=== PATIENT | female | born 2000 | race Caucasian/White ===

== ENCOUNTER 2024-01-16 10:20 | Emergency (ER) | payer SELFPAY ==
[2024-01-16] MEDS ORDERED: ONDANSETRON 4 MG/2 ML VIAL ONE (10:58)
[2024-01-16] MEDS ORDERED: FAMOTIDINE 20 MG/2 ML VIAL IV ONE (10:58)
[2024-01-16] MEDS ORDERED: NA CHLORIDE 0.9% 1,000 ML ONE (10:58)
[2024-01-16 11:04] LABS: Specific Gravity 1.017 (1.005-1.030)
[2024-01-16 11:06] LABS: Specific Gravity 1.017 (1.005-1.030); Sqamous Epithelial <5 /HPF (None Seen); Urine Bacteria None Seen /HPF (<20); Urine Bilirubin NEGATIVE (Negative); Urine Blood Negative (Negative); Urine Clarity Extremely Turbid (Clear); Urine Color Light-Yellow (Yellow); Urine Culture Reflex Order NOT NEEDED; Urine Glucose NEGATIVE (Negative); Urine Ketones NEGATIVE (Negative); Urine Microscopic Reflex YN ORDER UMIC; Urine Mucus Slight /HPF (None Seen); Urine Nitrite NEGATIVE (Negative); Urine Protein NEGATIVE (Negative); Urine RBC <5 /HPF (None Seen); Urine Urobilinogen Normal (Normal); Urine WBC <5 /HPF (<5); Urine pH 7.5 (5.0-7.0)
[2024-01-16 11:38] LABS: Absolute Eosinophils 0.1 K/uL (0-0.5); Absolute Lymphocytes (CBC) 1.9 K/uL (0.7-4.9); Absolute Monocytes 0.4 K/uL (0.1-1.3); Basophils % 0.5 % (0-1.3); Hematocrit 41.3 % (36.0-45.0); Hemoglobin 13.4 g/dL (12.0-15.0); Lymphocytes % 34.6 % (15.3-44.8); MCH 27.2 pg (27.0-35.0); MCHC 32.6 g/dL (32.0-36.0); MCV 83.5 fL (80-100); MPV 8.5 fL (7.6-11.3); Monocytes % 6.9 % (3.3-12.3); Platelets 287 thou/uL (152-406); RBC Red Blood Cell Count 4.95 M/uL (3.86-4.86); Red Cell Distribution Width 14.9 % (12.1-15.2)
[2024-01-16 11:58] LABS: Albumin 3.7 g/dL (3.4-5.0); Albumin/Globulin Ratio 0.8 (1.1-1.8); Bilirubin Total 0.4 mg/dL (0.2-1.0); Globulin 4.7 g/dL (2.3-3.5); Protein, Total 8.4 g/dL (6.4-8.2)
--- NOTE | 2024-01-16 14:03 | ER ---
Nurse's Notes [facility] Name: Camilla Christianson Age: 23 yrs Sex: Female : 2000 Arrival Date: 01/16/2024 Time: 10:20 Bed 7 Private MD: Diagnosis: Abdominal tenderness;Nausea;Dizziness and giddiness Presentation: 01/15 10:38 Chief complaint: Patient states: LOW RIGHT ABD PAIN RADIATES INTO BACK, N/V, DIZZINESS db X 2 DAYS WORSE TODAY. DENIES STATES HAS IUD. Coronavirus screen: Client denies travel out of the [place] in the last 14 days. At this time, the client does not indicate any symptoms associated with coronavirus-19. Ebola Screen: Patient negative for fever greater than or equal to 101.5 degrees Fahrenheit, and additional compatible Ebola Virus Disease symptoms Patient denies exposure to infectious person. Patient denies travel to an Ebola-affected area in the 21 days before illness onset. No symptoms or risks identified at this time. Initial Sepsis Screen: Does the patient meet any 2 criteria? No. Patient's initial sepsis screen is negative. Does the patient have a suspected source of infection? No. Patient's initial sepsis screen is negative. Risk Assessment: Do you want to hurt yourself or someone else? Patient reports no desire to harm self or others. Onset of symptoms was January 16, 2024. 10:38 Method Of Arrival: Ambulatory db 10:38 Acuity: GIULIANA 3 db Triage Assessment: 10:41 General: Appears in no apparent distress. comfortable, Behavior is calm, cooperative, db appropriate for age. Pain: Complains of pain in abdomen. Neuro: Level of Consciousness is awake, alert, obeys commands, Oriented to person, place, time, situation. Neuro: Reports dizziness. Respiratory: Airway is patent Respiratory effort is even, unlabored, Respiratory pattern is regular, symmetrical. GI: Abdomen is non-distended, Reports lower abdominal pain, nausea. Historical: - Allergies: 10:41 No Known Allergies; db - PMHx: 10:41 None; db - PSHx: 10:41 section; eye surgery; db - Immunization history:: Adult Immunizations unknown. - Infectious Disease History:: Denies. - Social history:: Smoking status: Reported history of juuling and/or vaping. Screenin:40 [facility] ED Fall Risk Assessment (Adult) History of falling in the last 3 months, rs5 including since admission No falls in past 3 months (0 pts) Confusion or Disorientation No (0 pts) Intoxicated or Sedated No (0 pts) Impaired Gait No (0 pts) Mobility Assist Device Used No (0 pt) Altered Elimination No (0 pt) Score/Fall Risk Level 0 - 2 = Low Risk Oriented to surroundings, Maintained a safe environment. 11:37 Abuse screen: Denies threats or abuse. Nutritional screening: No deficits noted. ap3 Tuberculosis screening: No symptoms or risk factors identified. Assessment: 11:35 General: Appears in no apparent distress. Behavior is calm, cooperative, appropriate ap3 for age. Pain: Complains of pain in abdomen. Neuro: Level of Consciousness is awake, alert, obeys commands, Oriented to person, place, time, situation, Appropriate for age Gait is steady, Speech is normal. Cardiovascular: Patient's skin is warm and dry. Respiratory: Airway is patent Respiratory effort is even, unlabored, Respiratory pattern is regular, symmetrical. GI: Abdomen is non-distended, Reports nausea. 12:14 Reassessment: Patient and/or family updated on plan of care and expected duration. Pain ap3 level reassessed. Patient is alert, oriented x 3, equal unlabored respirations, skin warm/dry/pink. 13:20 Reassessment: Patient and/or family updated on plan of care and expected duration. Pain rs5 level reassessed. Patient is alert, oriented x 3, equal unlabored respirations, skin warm/dry/pink. 14:17 Reassessment: Patient and/or family updated on plan of care and expected duration. Pain rs5 level reassessed. Patient is alert, oriented x 3, equal unlabored respirations, skin warm/dry/pink. Vital Signs: 10:38 BP 123 / 76; Pulse 60; Resp 16; Temp 98.4; Pulse Ox 100% ; Weight 105.69 kg; Height 5 db ft. 9 in. ; Pain 4/10; 12:12 BP 107 / 52; Pulse 61; Resp 17; Pulse Ox 98% on R/A; ap3 12:53 BP 101 / 62; Pulse 72; Pulse Ox 100% on R/A; ap3 14:15 BP 110 / 70; Pulse 74; Resp 17; Pulse Ox 99% on R/A; rs5 10:38 Body Mass Index 34.41 (105.69 kg, 175.26 cm) db 10:38 Pain Scale: Adult db ED Course: 10:23 Patient arrived in ED. mr 10:29 Kalpesh Joseph MD is Attending Physician. osbaldo 10:40 No provider procedures requiring assistance completed. rs5 10:41 Triage completed. db 10:41 Arm band placed on right wrist. Patient placed in waiting room. db 11:35 Raysa Carmichael, PAU is Primary Nurse. ap3 11:35 Initial lab(s) drawn, by ar, sent to lab. Inserted saline lock: 22 gauge in right ap3 antecubital area, using aseptic technique. Blood collected. Flushed with 10 mL NS. 11:37 Patient has correct armband on for positive identification. Call light in reach. Side ap3 rails up X 1. Provided Education on: call light education. Pulse ox on. NIBP on. 14:05 CT Stone Protocol In Process Unspecified. EDMS 14:25 IV discontinued, intact, bleeding controlled, No redness/swelling at site. Pressure rs5 dressing applied. Administered Medications: 11:36 Drug: Famotidine IVP 20 mg IVP once; dilute with 10 mL 0.9% NaCl; give over 2 minutes ap3 Route: IVP; Site: right antecubital; 12:36 Follow up: Response: No adverse reaction ap3 11:36 Drug: Ondansetron IVP 4 mg IVP once; over 2 minutes Route: IVP; Site: right antecubital;ap3 12:36 Follow up: Response: No adverse reaction; Nausea is decreased ap3 11:36 Drug: NS 0.9% IV 1000 ml IV at 1 bolus Per protocol; to be given as a bolus over 60 ap3 minutes Route: IV; Rate: 1 bolus; Site: right antecubital; 12:36 Follow up: IV Status: Completed infusion; IV Intake: 1000ml ap3 Medication: 10:41 VIS not applicable for this client. rs5 Intake: 12:36 IV: 1000ml; Total: 1000ml. ap3 Outcome: 14:02 Discharge ordered by . osbaldo 14:25 Discharged to home ambulatory, rs5 14:25 Condition: stable rs5 14:25 Discharge instructions given to patient, family, Instructed on discharge instructions, follow up and referral plans. Demonstrated understanding of instructions, follow-up care, 14:28 Patient left the ED. rs5 Signatures: Dispatcher [employer] EDKalpesh Heck MD MD cha Rivera Kristy, [facility] Reg mr AmolRaysa, RN RN ap3 Nilsa Bradley RN RN db Moses Ware RN RN rs5 Corrections: (The following items were deleted from the chart) 10:42 10:38 Chief complaint: Patient states: ABD PAIN N/V, DIZZINESS X 2 DAYS WORSE TODAY. db DENIES STATES HAS IUD db
--- NOTE | 2024-01-16 14:03 | EDPHYS ---
Physician Documentation [facility] Name: Camilla Christianson Age: 23 yrs Sex: Female : 2000 Arrival Date: 01/16/2024 Time: 10:20 Bed 7 Private MD: ED Physician Kalpesh Joseph HPI: 01/15 13:28 This 23 yrs old Female presents to ER via Ambulatory with complaints of osbaldo Abdominal Pain, Nausea, Dizziness. 13:28 The patient presents to the emergency department with nausea. Onset: The osbaldo symptoms/episode began/occurred 2 day(s) ago. Possible causes: unknown. The symptoms are aggravated by nothing. The symptoms are alleviated by nothing. Associated signs and symptoms: The patient has no apparent associated signs or symptoms. Severity of symptoms: At their worst the symptoms were moderate in the emergency department the symptoms are unchanged. The patient has experienced similar episodes in the past, a few times. Historical: - Allergies: 10:41 No Known Allergies; db - PMHx: 10:41 None; db - PSHx: 10:41 section; eye surgery; db - Immunization history:: Adult Immunizations unknown. - Infectious Disease History:: Denies. - Social history:: Smoking status: Reported history of juuling and/or vaping. ROS: 13:29 Constitutional: Negative for fever, chills, and weight loss, Eyes: Negative for injury, osbaldo pain, redness, and discharge, ENT: Negative for injury, pain, and discharge, Neck: Negative for injury, pain, and swelling, Cardiovascular: Negative for chest pain, palpitations, and edema, Respiratory: Negative for shortness of breath, cough, wheezing, and pleuritic chest pain, Back: Negative for injury and pain, : Negative for injury, bleeding, discharge, and swelling, MS/Extremity: Negative for injury and deformity, Skin: Negative for injury, rash, and discoloration, Neuro: Negative for headache, weakness, numbness, tingling, and seizure, Psych: Negative for depression, anxiety, suicide ideation, homicidal ideation, and hallucinations, Allergy/Immunology: Negative for hives, rash, and allergies, Endocrine: Negative for neck swelling, polydipsia, polyuria, polyphagia, and marked weight changes, Hematologic/Lymphatic: Negative for swollen nodes, abnormal bleeding, and unusual bruising, 13:29 Abdomen/GI: Positive for abdominal pain, nausea, vomiting, abdominal cramps, of the posterior aspect of right lateral abdomen, anterior aspect of right lateral abdomen and right lower quadrant, Exam: 13:29 Constitutional: This is a well developed, well nourished patient who is awake, alert, osbaldo and in no acute distress. Head/Face: Normocephalic, atraumatic. Eyes: Pupils equal round and reactive to light, extra-ocular motions intact. Lids and lashes normal. Conjunctiva and sclera are non-icteric and not injected. Cornea within normal limits. Periorbital areas with no swelling, redness, or edema. ENT: Nares patent. No nasal discharge, no septal abnormalities noted. Tympanic membranes are normal and external auditory canals are clear. Oropharynx with no redness, swelling, or masses, exudates, or evidence of obstruction, uvula midline. Mucous membranes moist. Neck: Trachea midline, no thyromegaly or masses palpated, and no cervical lymphadenopathy. Supple, full range of motion without nuchal rigidity, or vertebral point tenderness. No Meningismus. Chest/axilla: Normal chest wall appearance and motion. Nontender with no deformity. No lesions are appreciated. Cardiovascular: Regular rate and rhythm with a normal S1 and S2. No gallops, murmurs, or rubs. Normal PMI, no JVD. No pulse deficits. Respiratory: Lungs have equal breath sounds bilaterally, clear to auscultation and percussion. No rales, rhonchi or wheezes noted. No increased work of breathing, no retractions or nasal flaring. Abdomen/GI: Soft, non-tender, with normal bowel sounds. No distension or tympany. No guarding or rebound. No evidence of tenderness throughout. Back: No spinal tenderness. No costovertebral tenderness. Full range of motion. Skin: Warm, dry with normal turgor. Normal color with no rashes, no lesions, and no evidence of cellulitis. MS/ Extremity: Pulses equal, no cyanosis. Neurovascular intact. Full, normal range of motion. Neuro: Awake and alert, GCS 15, oriented to person, place, time, and situation. Cranial nerves II-XII grossly intact. Motor strength 5/5 in all extremities. Sensory grossly intact. Cerebellar exam normal. Normal gait. Psych: Awake, alert, with orientation to person, place and time. Behavior, mood, and affect are within normal limits. Vital Signs: 10:38 BP 123 / 76; Pulse 60; Resp 16; Temp 98.4; Pulse Ox 100% ; Weight 105.69 kg; Height 5 db ft. 9 in. ; Pain 4/10; 12:12 BP 107 / 52; Pulse 61; Resp 17; Pulse Ox 98% on R/A; ap3 12:53 BP 101 / 62; Pulse 72; Pulse Ox 100% on R/A; ap3 14:15 BP 110 / 70; Pulse 74; Resp 17; Pulse Ox 99% on R/A; rs5 10:38 Body Mass Index 34.41 (105.69 kg, 175.26 cm) db 10:38 Pain Scale: Adult db MDM: 10:29 Medical Screening Exam initiated osbaldo 13:32 Differential diagnosis: Nonspecific abd pain, cholecystitis, pancreatitis, osbaldo appendicitis, viral gastroenteritis, gastroenteritis. Data reviewed: vital signs, nurses notes, lab test result(s), radiologic studies, CT scan. Consideration of Admission/Observation Escalation of care including admission/observation considered. I considered the following discharge prescriptions or medication management in the emergency department Medications were administered in the Emergency Department. See MAR. Test considered but Not performed: Ultrasound NO ABD USG. Care significantly affected by the following chronic conditions: Obesity. 01/15 10:29 Order name: CBC with Diff; Complete Time: 13:15 [facility] 01/15 10: Order name: CMP; Complete Time: 13:15 [facility] 01/15 10:29 Order name: Lipase; Complete Time: 13:15 [facility] 01/15 10:29 Order name: Test, Urine; Complete Time: 13:15 [facility] 01/15 10:29 Order name: Urinalysis w/ reflexes; Complete Time: 13:15 [facility] 01/15 13:34 Order name: CT Stone Protocol [facility] 01/15 10: Order name: IV Saline Lock; Complete Time: 11:36 [facility] 01/15 10: Order name: Labs collected and sent; Complete Time: 11:36 [facility] Administered Medications: 11:36 Drug: Famotidine IVP 20 mg IVP once; dilute with 10 mL 0.9% NaCl; give over 2 minutes ap3 Route: IVP; Site: right antecubital; 12:36 Follow up: Response: No adverse reaction ap3 11:36 Drug: Ondansetron IVP 4 mg IVP once; over 2 minutes Route: IVP; Site: right antecubital;ap3 12:36 Follow up: Response: No adverse reaction; Nausea is decreased ap3 11:36 Drug: NS 0.9% IV 1000 ml IV at 1 bolus Per protocol; to be given as a bolus over 60 ap3 minutes Route: IV; Rate: 1 bolus; Site: right antecubital; 12:36 Follow up: IV Status: Completed infusion; IV Intake: 1000ml ap3 Disposition Summary: 01/16/24 14:02 Discharge Ordered Notes: Location: Home osbaldo Problem: new osbaldo Symptoms: have improved osbaldo Condition: Stable osbaldo Diagnosis - Abdominal tenderness obsaldo - Nausea osbaldo - Dizziness and giddiness osbaldo Followup: osbaldo - With: Private Physician - When: 2 - 3 days - Reason: Recheck today's complaints, Continuance of care, Re-evaluation by your physician Discharge Instructions: - Discharge Summary Sheet osbaldo - Abdominal Pain, Adult osbaldo - Dizziness osbaldo - Nausea and Vomiting, Adult osbaldo - Abdominal Pain, Adult, [id number] osbaldo Forms: - Medication Reconciliation Form osbaldo - Antibiotic Education osbaldo - Prescription Opioid Use osbaldo - Patient Portal Instructions osbaldo - Leadership Thank You Letter osbaldo - Work release form rs5 - SBAR form rs5 Prescriptions: - Zofran 4 mg Oral Tablet - take 1 tablet ORAL route every 12 hours As needed; 20 tablet; Refills: 0, osbaldo Product Selection Permitted - dicyclomine 20 mg Oral tablet - take 1 tablet ORAL route 4 times per day; 28 tablet; Refills: 0, Product osbaldo Selection Permitted Signatures: Dispatcher [employer] EDMS Kalpesh Joseph MD MD cha Prokisch, Amanda RN RN ap3 Nilsa Bradley RN RN db Corrections: (The following items were deleted from the chart) 10:29 10:29 CBC+H.LAB.BRZ ordered. EDMS EDMS 10:29 10:29 COMPREHENSIVE METABOLIC PANEL+C.LAB.BRZ ordered. EDMS EDMS 10:29 10:29 LIPASE+C.LAB.BRZ ordered. EDMS EDMS 10:29 10:29 Test, Urine+UC.LAB.BRZ ordered. EDMS EDMS 10:29 10:29 Urinalysis+U.LAB.BRZ ordered. EDMS EDMS
--- NOTE | 2024-01-16 14:34 | RAD REPORT ---
EXAMINATION: CT Stone Protocol CLINICAL INDICATION: Female, 23 years old. ABD PAIN TECHNIQUE: CT abdomen and pelvis was performed, without IV contrast, as per department protocol. Axia l, sagittal and coronal reconstructions were obtained. One or more of the following dose reduction techniques were used: Automated exposure control, adjustment of the mA and kV according to the patien t size, and iterative reconstruction. Unless otherwise specified, incidental findings do not require dedicated imaging follow-up. COMPARISON: 12/19/2023 FINDINGS: The lack of intravenous contrast limits the sensitivity of this exam for evaluation of solid visceral organs, vascular structures, and retroperitoneum. LOWER CHEST: The visualized lung bases are clear. LIVER: Normal in size and contour. No focal lesion. BILIARY SYSTEM: No suspicious abnormalities. SPLEEN: Normal size. No focal lesion. PANCREAS: No mass, ductal dilation, or liv-pancreatic fluid. ADRENALS: Normal; no mass. KIDNEYS AND URETERS: Normal size and contour. No hydronephrosis. URINARY BLADDER: Normal contour. GASTROINTESTINAL TRACT: No evidence of bowel obstruction, significant free fluid, free air or abscess . APPENDIX: Normal appendix. LYMPH NODES: No lymphadenopathy. MUSCULOSKELETAL: No acute or suspicious osseous abnormality. ADDITIONAL FINDINGS: Uterus is retroverted. IUD in place. Ovoid cyst measuring 1.9 cm in greatest dim ension along the right aspect of the perineum, somewhat decreased in size since the prior CT. IMPRESSION: No acute or concerning abnormalities in the abdomen or pelvis, with evaluation limited by lack of IV contrast.
[2024-01-16 18:00] VITALS: TEMP 98.4
[2024-01-16 18:02] VITALS: BP 101/62; O2SAT 100
== END 2024-01-16 14:28 | disposition home or self-care (01) ==
LOC: ER 10:20
DX: R10.813 Right lower quadrant abdominal tenderness (principal); R11.0 Nausea; R42 Dizziness and giddiness
CPT/HCPCS: 36415; 74176; 76377; 80053; 81001; 81025; 83690; 85025; 96361; 96374; 96375; 99284; J2405; J7030

== ENCOUNTER 2024-05-11 14:31 | Emergency (ER) | payer OTHER, SELFPAY ==
--- NOTE | 2024-05-11 15:37 | RAD REPORT ---
EXAMINATION: US FIRST TRIMESTER TRANSVAGINAL WITH DOPPLER CLINICAL INDICATION: with pelvic pain TECHNIQUE: Real-time obstetrical ultrasonography of the maternal pelvis and first trimester was performed transvaginally. Color and spectral Doppler evaluation of the ovaries was performed. COMPARISON: No prior exam. FINDINGS: The uterus measures 7 x 4 x 4 cm. The uterus is retroflexed. A endometrial stripe measures 4 mm. A gestational sac is not seen. Right ovary normal in size and echotexture Left ovary normal in size and echotexture Right and left adnexa unremarkable No significant free fluid IMPRESSION: Non visualization of a gestational sac within the endometrium. This could be a viable intrauterine pr egnancy in which the gestational sac not seen secondary to the early gestation. Other considerations include an and even ectopic . This should be correlated clinically and with serial beta-hCG levels. Follow-up endovaginal sonogram in one week recommended for reevaluation
[2024-05-11 15:43] LABS: Specific Gravity 1.018 (1.005-1.030); Sqamous Epithelial <5 /HPF (None Seen); Urine Bacteria <20 /HPF (<20); Urine Bilirubin NEGATIVE (Negative); Urine Blood 3+ (OVER) (Negative); Urine Clarity Clear (Clear); Urine Color Light-Yellow (Yellow); Urine Crystals Unidentified Few /HPF (None Seen); Urine Culture Reflex Order NOT NEEDED; Urine Glucose NEGATIVE (Negative); Urine Ketones NEGATIVE (Negative); Urine Microscopic Reflex YN ORDER UMIC; Urine Nitrite NEGATIVE (Negative); Urine Protein NEGATIVE (Negative); Urine RBC >50 /HPF (None Seen); Urine Urobilinogen Normal (Normal); Urine WBC <5 /HPF (<5); Urine Yeast (Budding) Trace /HPF (None Seen)
--- NOTE | 2024-05-11 16:02 | EDPHYS ---
Physician Documentation [facility] Name: Camilla Christianson Age: 23 yrs Sex: Female : 2000 Arrival Date: 05/11/2024 Time: 14:31 Bed DX2 Private MD: ED Physician Wendy Mane HPI: 05/11 14:53 This 23 yrs old Female presents to ER via Unassigned with complaints of Vaginal kb Bleeding, + Preg <12wks. 14:53 Patient is a 23-year-old female who presents for vaginal bleeding that is light that kb started today. Reports mild suprapubic pain. States she took a test 1 week ago and it was positive. LMP 03/06/2024. A2.. COW TESTER: 15:02 LMP 03/06/2024, unknown ko1 Historical: - Allergies: 15:02 No Known Allergies; ko1 - Home Meds: 15:02 None [Active]; ko1 - PMHx: 15:02 None; ko1 - PSHx: 15:02 section; eye surgery; ko1 - Immunization history:: Adult Immunizations up to date. - Infectious Disease History:: Denies. - Social history:: Smoking status: Patient/guardian denies using tobacco, but has a distant history of tobacco abuse. ROS: 14:53 Constitutional: As per HPI kb Exam: 14:53 Constitutional: This is a well developed, well nourished patient who is awake, alert, kb and in no acute distress. Head/Face: Normocephalic, atraumatic. ENT: Moist Mucous membranes Cardiovascular: Regular rate Respiratory: Respirations even and unlabored. No increased work of breathing. Talking in full sentences Abdomen/GI: Soft, non-tender. No distention Skin: Warm, dry with normal turgor. Normal color. MS/ Extremity: Pulses equal, no cyanosis. Neurovascular intact. Full, normal range of motion. Neuro: Awake and alert, GCS 15, oriented to person, place, time, and situation. Vital Signs: 14:59 BP 123 / 82; Pulse 77; Resp 16; Temp 98; Pulse Ox 100% ; ko1 MDM: 14:34 Medical Screening Exam initiated kb 14:56 Data reviewed: vital signs, nurses notes. kb 14:57 Differential diagnosis: threatened Ab, complete Ab, ectopic . kb 16:00 Counseling: I had a detailed discussion with the patient and/or guardian regarding the kb historical points, exam findings, and any diagnostic results supporting the discharge/admit diagnosis, lab results, radiology results, the need for outpatient follow up, an OB/Gyne specialist, to return to the emergency department if symptoms worsen or persist or if there are any questions or concerns that arise at home. 05/11 14:45 Order name: Test, Urine; Complete Time: 15:46 kb 05/11 14:45 Order name: Urinalysis w/ reflexes; Complete Time: 15:46 kb 05/11 14:45 Order name: US Transvaginal Ob; Complete Time: 15:38 kb Administered Medications: No medications were administered Disposition: 19:49 Co-signature as Attending Physician, Wendy Mane MD I agree with the assessment and gb1 plan of care. I reviewed the patient's care provided by the Advanced Practice Provider and agree with the diagnosis and treatment plan. Chart complete. Disposition Summary: 05/11/24 16:01 Discharge Ordered Notes: Location: Home kb Condition: Stable kb Diagnosis - Abnormal uterine and vaginal bleeding, unspecified kb Followup: kb - With: Emergency Department - When: As needed - Reason: Worsening of condition Followup: kb - With: Private Physician - When: 2 - 3 days - Reason: Recheck today's complaints, Continuance of care, Re-evaluation by your physician Discharge Instructions: - Discharge Summary Sheet kb - Abnormal Uterine Bleeding, Oeax-mn-Ohel kb Forms: - Medication Reconciliation Form kb - Antibiotic Education kb - Prescription Opioid Use kb - Patient Portal Instructions kb - Leadership Thank You Letter kb Signatures: Dispatcher [employer] EDIN Fatimah Ambriz, EVENT AV OPERATOR-C EVENT AV OPERATOR-Ckb Khadijah Lorenzo, RN RN ko1 Wendy Mane MD MD gb1 Corrections: (The following items were deleted from the chart) 14:45 14:45 ABO/RH TYPING+BB.LAB.BRZ ordered. EDIN EDMS 14:45 14:45 BASIC METABOLIC PANEL+C.LAB.BRZ ordered. EDIN EDMS 14:45 14:45 CBC+H.LAB.BRZ ordered. EDIN EDMS 14:45 14:45 Test, Urine+UC.LAB.BRZ ordered. EDMS EDMS 14:45 14:45 QUANTITATIVE HCG+C.LAB.BRZ ordered. EDMS EDMS 14:45 14:45 Urinalysis+U.LAB.BRZ ordered. EDMS EDMS 14:46 14:45 Transvaginal Ob+US.RAD.BRZ ordered. EDMS EDMS 16: 14:45 IV Saline Lock ordered. kb 16:03 14:45 Labs collected and sent ordered. kb 16:03 14:45 NPO ordered. [facility]
--- NOTE | 2024-05-11 16:02 | ER ---
Nurse's Notes [facility] Name: Camilla Christianson Age: 23 yrs Sex: Female : 2000 Arrival Date: 05/11/2024 Time: 14:31 Bed DX2 Private MD: Diagnosis: Abnormal uterine and vaginal bleeding, unspecified Presentation: 05/11 14:59 Chief complaint: Patient states: positive preg test one week ago, bleeding today mild ko1 pain. Coronavirus screen: At this time, the client does not indicate any symptoms associated with coronavirus-19. Ebola Screen: No symptoms or risks identified at this time. Initial Sepsis Screen: Does the patient meet any 2 criteria? No. Patient's initial sepsis screen is negative. Does the patient have a suspected source of infection? No. Patient's initial sepsis screen is negative. Risk Assessment: Do you want to hurt yourself or someone else? Patient reports no desire to harm self or others. Onset of symptoms is unknown. 14:59 Method Of Arrival: Ambulatory ko1 14:59 Acuity: GIULIANA 4 ko1 Triage Assessment: 15:02 General: Appears in no apparent distress. Behavior is calm, cooperative, appropriate ko1 for age. Pain: Denies pain. : Reports vaginal bleeding that is bright red. 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 - Infectious Disease History:: Denies. - Social history:: Smoking status: Patient/guardian denies using tobacco, but has a distant history of tobacco abuse. Screenin:12 Abuse screen: Denies threats or abuse. Denies injuries from another. Nutritional ss screening: No deficits noted. Tuberculosis screening: Never had TB. Assessment: 16:12 General: Appears in no apparent distress. comfortable, Behavior is calm, cooperative. ss Neuro: Level of Consciousness is awake, alert, obeys commands. Respiratory: Airway is patent Respiratory effort is even, unlabored, Respiratory pattern is regular, symmetrical. EENT: Nares are clear. Vital Signs: 14:59 BP 123 / 82; Pulse 77; Resp 16; Temp 98; Pulse Ox 100% ; ko1 ED Course: 14:33 Patient arrived in ED. mr 14:34 Fatimah Ambriz F[facility]-C [facility]. kb 14:34 Wendy Mane MD is Attending Physician. kb 15:02 Triage completed. ko1 15:02 Arm band placed on right wrist. Patient placed in waiting room, Patient notified of ko1 wait time. 15:29 US Transvaginal Ob In Process Unspecified. EDMS 16:12 Patient has correct armband on for positive identification. ss 16:12 No provider procedures requiring assistance completed. Patient did not have IV access ss during this emergency room visit. Administered Medications: No medications were administered Medication: 16:12 VIS not applicable for this client. ss Outcome: 16:01 Discharge ordered by . kb 16:12 Discharged to home ambulatory, ss 16:12 Condition: good 16:12 Discharge instructions given to patient, significant other, Instructed on discharge instructions, follow up and referral plans. Demonstrated understanding of instructions, follow-up care, 16:13 Patient left the ED. ss Signatures: Dispatcher [employer] EDNJ Fatimah Ambriz FNP-C FNP-Kristy Miranda, Reg Reg mr Mehnaz Godwin, RN RN ss Khadijah Lorenzo, PAU RN ko1
[2024-05-11 16:32] VITALS: BP 123/82; TEMP 98; O2SAT 100
== END 2024-05-11 16:13 | disposition home or self-care (01) ==
LOC: ER 14:31
DX: N93.9 Abnormal uterine and vaginal bleeding, unspecified (principal)
CPT/HCPCS: 76817; 81001; 81025; 99282

== ENCOUNTER 2024-08-11 12:15 | Emergency (ER) | payer SELFPAY ==
[2024-08-11] MEDS ORDERED: MORPHINE 4 MG/ML SYR ONE (12:37)
[2024-08-11] MEDS ORDERED: ONDANSETRON 4 MG/2 ML VIAL ONE (12:38)
[2024-08-11 12:42] LABS: Absolute Eosinophils 0.1 K/uL (0-0.5); Absolute Monocytes 0.4 K/uL (0.1-1.3); Absolute Neutrophil 3.9 K/uL (1.8-8.0); Basophils % 0.6 % (0-1.3); Eosinophils % 2.3 % (0-4.4); Hematocrit 39.6 % (36.0-45.0); Hemoglobin 13.5 g/dL (12.0-15.0); Lymphocytes % 30.6 % (15.3-44.8); MCH 27.6 pg (27.0-35.0); MCV 81.3 fL (80-100); MPV 8.5 fL (7.6-11.3); Monocytes % 6.6 % (3.3-12.3); Neutrophils % 59.9 % (41.7-73.7); Nucleated Red Blood Cells % 0.1 % (0-0); Platelets 306 thou/uL (152-406); RBC Red Blood Cell Count 4.87 M/uL (3.86-4.86)
[2024-08-11 13:03] LABS: Albumin 3.6 g/dL (3.4-5.0); Albumin/Globulin Ratio 0.7 (1.1-1.8); Bilirubin Total 0.2 mg/dL (0.2-1.0); Globulin 4.9 g/dL (2.3-3.5); Protein, Total 8.5 g/dL (6.4-8.2)
[2024-08-11 13:25] LABS: Specific Gravity 1.021 (1.005-1.030)
--- NOTE | 2024-08-11 13:55 | RAD REPORT ---
EXAMINATION: Abdomen Pelvis W Contrast CLINICAL INDICATION: Female, 23 years old.ABD PAIN TECHNIQUE: CT abdomen and pelvis was performed, after the administration of IV contrast, [facility]. Axial, sagittal and coronal reconstructions were obtained. One or more of the following dose reduction techniques were used: Automated exposure control, adjustment of the mA and/o r kV according to patient size, and/or iterative reconstruction. Unless otherwise specified, incidental findings do not require dedicated imaging follow-up. [id number]. COMPARISON: 12/19/2023 FINDINGS: LOWER CHEST: No acute process identified.No significant pericardial effusion. UPPER GI: No significant abnormality. LIVER: No significant focal abnormality. GALLBLADDER/BILE DUCTS: No biliary ductal dilatation.? PANCREAS: No mass, ductal dilation, or liv-pancreatic fluid. SPLEEN: Unremarkable. ADRENALS: No adrenal masses. KIDNEYS AND URETERS: No hydronephrosis.No suspicious renal mass. ABDOMINAL AORTA AND OTHER VESSELS: Normal caliber aorta and IVC. PERITONEUM: No abnormal free fluid. No free air. LYMPH NODES: No pathologic lymphadenopathy. ABDOMINAL WALL: Small fat containing umbilical hernia with some mild stranding though this is unchang ed and probably of little significance... SMALL BOWEL/COLON: Small bowel has normal course and caliber. No colonic wall thickening or pericolon ic inflammatory changes.Normal appendix. URINARY BLADDER: Underdistended but grossly unremarkable. REPRODUCTIVE ORGANS: Bartholin's cyst at the right labia. MUSCULOSKELETAL: No acute or suspicious osseous abnormality. ADDITIONAL FINDINGS: None. IMPRESSION: No acute findings within the abdomen or pelvis. Normal appendix
--- NOTE | 2024-08-11 16:11 | RAD REPORT ---
EXAMINATION: US Transvaginal Study Probe CLINICAL INDICATION: Female 23 years old.[facility] . RLQ abdominal pain Bed Name: 20 TECHNIQUE: Real-time ultrasonography of the pelvis was performed transvaginally. Color and spectral D oppler evaluation of the ovaries was performed. COMPARISON: No prior exam. FINDINGS: UTERUS AND CERVIX: The uterus measures 6.9 cm in length. The uterus is normal, with a single small na bothian cyst near the cervix. No masses seen The endometrium is normal, 0.8 cm in thickness. RIGHT OVARY: Normal apart from dominant right ovarian follicle measuring 1.5 cm. The right ovary jennifer ures 3.7x2.4x2.4 cm. Normal color and spectral Doppler evaluation of the right ovary.. LEFT OVARY: Normal The left ovary measures 3.5x2.3x1.9 cm. Normal color and spectral Doppler evaluation of the left ovary.. FREE FLUID: No free fluid. IMPRESSION: No suspicious abnormalities of the uterus or adnexa.
--- NOTE | 2024-08-11 16:18 | EDPHYS ---
Physician Documentation [facility] Name: Camilla Christianson Age: 23 yrs Sex: Female : 2000 Arrival Date: 08/11/2024 Time: 12:15 Bed 20 Private MD: ED Physician Jamaal Martínez HPI: 08/11 16:12 This 23 yrs old Female presents to ER via Ambulatory with complaints of Abdominal Pain. ms3 16:12 23-year-old female with no past medical history presents to the emergency department ms3 for abdominal pain began 2 days prior to arrival. Patient states the pain is sharp and located in the right side. Patient states the bumps and straightening on her abdomen makes the pain worse. Patient denies any alleviating or inciting factors.. 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 - Infectious Disease History:: Denies. - Social history:: Smoking status: Patient denies any tobacco usage or history of. ROS: 16:12 Constitutional: Negative for fever, and chills. Cardiovascular: Negative for chest ms3 pain, and palpitations. Respiratory: Negative for shortness of breath, cough, wheezing, and pleuritic chest pain, 16:12 MS/Extremity: Negative for injury and deformity, Skin: Negative for injury, rash, and discoloration, 16:12 Abdomen/GI: Positive for abdominal pain, Exam: 16:12 Constitutional: This is a well developed, well nourished patient who is awake, alert, ms3 and in no acute distress. Cardiovascular: Regular rate and rhythm with a normal S1 and S2. No gallops, murmurs, or rubs. Normal PMI, no JVD. No pulse deficits. Respiratory: Lungs have equal breath sounds bilaterally, clear to auscultation and percussion. No rales, rhonchi or wheezes noted. No increased work of breathing, no retractions or nasal flaring. Skin: Warm, dry with normal turgor. Normal color with no rashes, no lesions, and no evidence of cellulitis. MS/ Extremity: Pulses equal, no cyanosis. Neurovascular intact. Full, normal range of motion. 16:12 Abdomen/GI: Inspection: abdomen appears normal, Bowel sounds: normal, Palpation: moderate abdominal tenderness, in the right lower quadrant, Vital Signs: 12:27 BP 138 / 78; Pulse 63; Resp 18; Temp 98; Pulse Ox 97% on R/A; Weight 106.59 kg; Height mb9 5 ft. 9 in. ; Pain 8/10; 14:15 BP 112 / 63; Pulse 84; Resp 18; Pulse Ox 100% on R/A; mb9 12:27 Body Mass Index 34.70 (106.59 kg, 175.26 cm) mb9 12:27 Pain Scale: Adult mb9 MDM: 13:10 Medical Screening Exam initiated ms3 16:12 Differential diagnosis: appendicitis, non-specific abd pain, Ovarian Torsion. ms3 16:21 Data reviewed: vital signs, nurses notes, lab test result(s), radiologic studies, and ms3 as a result, I will discharge patient. I considered the following discharge prescriptions or medication management in the emergency department Medications were administered in the Emergency Department. See MAR. Counseling: I had a detailed discussion with the patient and/or guardian regarding the historical points, exam findings, and any diagnostic results supporting the discharge/admit diagnosis, lab results, radiology results, the need for outpatient follow up, to return to the emergency department if symptoms worsen or persist or if there are any questions or concerns that arise at home. Special discussion: I discussed with the patient/guardian in detail that at this point there is no indication for admission to the hospital. It is understood, however, that if the symptoms persist or worsen the patient needs to return immediately for re-evaluation. ED course: Discussed labs and imaging with patient. No signs of ovarian torsion or appendicitis through imaging. White blood count normal. Patient to follow-up with primary care physician 2 to 3 days. Patient understands and agrees with plan. All questions were answered. Return precautions discussed include worsening symptoms, or any other concerns. 08/11 12:21 Order name: CBC with Diff; Complete Time: 12:53 ms3 08/11 12:21 Order name: CMP; Complete Time: 14:02 ms3 08/11 12:21 Order name: Lipase; Complete Time: 14:02 ms3 08/11 12:21 Order name: Test, Urine; Complete Time: 14:02 ms3 08/11 12:38 Order name: CT Abd/Pelvis - IV Contrast Only; Complete Time: 14:02 ms3 08/11 14:47 Order name: Transvaginal Study Probe; Complete Time: 16:17 EDMS 08/11 12:21 Order name: IV Saline Lock; Complete Time: 12:33 ms3 08/11 12:21 Order name: Labs collected and sent; Complete Time: 12:33 ms3 Administered Medications: 12:50 Drug: Ondansetron IVP 4 mg IVP once; over 2 minutes Route: IVP; Site: right antecubital;mb9 14:27 Follow up: Response: No adverse reaction mb9 12:52 Drug: morphine IVP or IV 4 mg IVP once over 4 mins Route: IVP; Infused Over: 4 mins; mb9 Site: right antecubital; 14:27 Follow up: Response: No adverse reaction mb9 Disposition Summary: 08/11/24 16:18 Discharge Ordered Notes: Location: Home ms3 Condition: Stable ms3 Diagnosis - Lower abdominal pain, unspecified ms3 Followup: ms3 - With: Arsen Davis DO - When: 2 - 3 days - Reason: Recheck today's complaints Discharge Instructions: - Discharge Summary Sheet ms3 - Abdominal Pain, Adult ms3 Forms: - Work release form ss - Medication Reconciliation Form ms3 - Antibiotic Education ms3 - Prescription Opioid Use ms3 - Patient Portal Instructions ms3 - Leadership Thank You Letter ms3 Signatures: Dispatcher [employer] EDMS Jamaal Martínez DO DO ms3 Kristy Jane RN RN mb9 Corrections: (The following items were deleted from the chart) 12:21 12:21 CBC+H.LAB.BRZ ordered. EDMS EDMS 12:21 12:21 COMPREHENSIVE METABOLIC PANEL+C.LAB.BRZ ordered. EDMS EDMS 12:21 12:21 LIPASE+C.LAB.BRZ ordered. EDMS EDMS 12:21 12:21 Test, Urine+UC.LAB.BRZ ordered. EDMS EDMS 14:09 14:09 Pelvis Complete+US.RAD.BRZ ordered. EDMS EDMS
--- NOTE | 2024-08-11 16:18 | ER ---
Nurse's Notes [facility] Name: Camilla Christianson Age: 23 yrs Sex: Female : 2000 Arrival Date: 08/11/2024 Time: 12:15 Bed 20 Private MD: Diagnosis: Lower abdominal pain, unspecified Presentation: 08/11 12:27 Chief complaint: Patient states: "2 days ago, I started having N/V/D and right sided mb9 abdominal pain that radiates to my left side and my back.". Coronavirus screen: Vaccine status: Patient reports receiving the 2nd dose of the covid vaccine. Ebola Screen: No symptoms or risks identified at this time. Initial Sepsis Screen: Does the patient meet any 2 criteria? No. Patient's initial sepsis screen is negative. Does the patient have a suspected source of infection? No. Patient's initial sepsis screen is negative. Risk Assessment: Do you want to hurt yourself or someone else? Patient reports no desire to harm self or others. Onset of symptoms was August 09, 2024. 12:27 Acuity: GIULIANA 3 mb9 12:27 Method Of Arrival: Ambulatory mb9 Triage Assessment: 12:29 General: Appears uncomfortable, Behavior is calm, cooperative. Pain: Complains of pain mb9 in abdomen Pain radiates to RLQ, LLQ, and back Quality of pain is described as sharp, Pain began 2-3 days ago. EENT: No signs and/or symptoms were reported regarding the EENT system. Neuro: Fraga Agitation-Sedation Scale (RASS): 0 - Alert and Calm Level of Consciousness is awake, alert, obeys commands, Oriented to person, place, time, situation, Appropriate for age. Cardiovascular: Patient's skin is warm and dry. Respiratory: Airway is patent Respiratory effort is even, unlabored, Respiratory pattern is regular, symmetrical. GI: Abdomen is round non-distended, Bowel sounds present X 4 quads. Abd is soft Abdomen is tender to palpation in right lower quadrant and left lower quadrant Reports diarrhea, nausea, vomiting. : Denies burning with urination. Derm: Skin is pink, warm \\T\\ dry. Musculoskeletal: Range of motion: intact in all extremities. 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 - Infectious Disease History:: Denies. - Social history:: Smoking status: Patient denies any tobacco usage or history of. Screenin:31 [facility] ED Fall Risk Assessment (Adult) History of falling in the last 3 months, mb9 including since admission No falls in past 3 months (0 pts) Confusion or Disorientation No (0 pts) Intoxicated or Sedated No (0 pts) Impaired Gait No (0 pts) Mobility Assist Device Used No (0 pt) Altered Elimination No (0 pt) Score/Fall Risk Level 0 - 2 = Low Risk Oriented to surroundings, Maintained a safe environment, Educated pt \\T\\ family on fall prevention, incl call for assistance when getting out of bed. Abuse screen: Denies threats or abuse. Nutritional screening: No deficits noted. Tuberculosis screening: No symptoms or risk factors identified. Assessment: 12:30 Reassessment: see triage assessment. mb9 14:15 Reassessment: No changes from previously documented assessment. Patient and/or family mb9 updated on plan of care and expected duration. Pain level reassessed. Patient is alert, oriented x 3, equal unlabored respirations, skin warm/dry/pink. 16:28 Reassessment: No changes from previously documented assessment. Patient and/or family mb9 updated on plan of care and expected duration. Pain level reassessed. Patient is alert, oriented x 3, equal unlabored respirations, skin warm/dry/pink. Vital Signs: 12:27 BP 138 / 78; Pulse 63; Resp 18; Temp 98; Pulse Ox 97% on R/A; Weight 106.59 kg; Height mb9 5 ft. 9 in. ; Pain 8/10; 14:15 BP 112 / 63; Pulse 84; Resp 18; Pulse Ox 100% on R/A; mb9 12:27 Body Mass Index 34.70 (106.59 kg, 175.26 cm) mb9 12:27 Pain Scale: Adult mb9 ED Course: 12:17 Patient arrived in ED. im 12:20 Kristy Jane, PAU is Primary Nurse. mb9 12:21 Jamaal Martínez DO is Attending Physician. ms3 12:27 Arm band placed on. mb9 12:29 Triage completed. mb9 12:31 Placed in gown. Bed in low position. Call light in reach. Side rails up X 1. Provided mb9 Education on: press call light if needing anything. Client placed on continuous cardiac and pulse oximetry monitoring. NIBP monitoring applied. 12:31 No provider procedures requiring assistance completed. Initial lab(s) drawn, by me, mbPhilip sent to lab. Inserted saline lock: 20 gauge in right antecubital area, using aseptic technique. Blood collected. Flushed with 10 mL NS. 12:33 CBC with Diff Sent. cc6 12:33 CMP Sent. cc6 12:33 Lipase Sent. cc6 13:36 CT Abd/Pelvis - IV Contrast Only In Process Unspecified. EDMS 15:12 Transvaginal Study Probe In Process Unspecified. EDMS 16:17 Arsen Davis DO is Referral Physician. ms3 16:28 IV discontinued, intact, bleeding controlled, No redness/swelling at site. Pressure mb9 dressing applied. Administered Medications: 12:50 Drug: Ondansetron IVP 4 mg IVP once; over 2 minutes Route: IVP; Site: right antecubital;mb9 14:27 Follow up: Response: No adverse reaction mb9 12:52 Drug: morphine IVP or IV 4 mg IVP once over 4 mins Route: IVP; Infused Over: 4 mins; mb9 Site: right antecubital; 14:27 Follow up: Response: No adverse reaction mb9 Medication: 12:31 VIS not applicable for this client. mb9 Outcome: 16:18 Discharge ordered by . ms3 16:28 Discharged to home ambulatory, mb9 16:28 Condition: stable 16:28 Discharge instructions given to patient, Instructed on discharge instructions, follow up and referral plans. Demonstrated understanding of instructions, follow-up care, 16:37 Patient left the ED. mb9 Signatures: Dispatcher [employer] EDMA Jamaal Martínez DO DO ms3 Kristy Jane RN RN mb9 Abril Morris Cassandra cc6
[2024-08-11 16:43] VITALS: TEMP 98
[2024-08-11 16:44] VITALS: BP 112/63; O2SAT 100
== END 2024-08-11 16:37 | disposition home or self-care (01) ==
LOC: ER 12:15
DX: R10.31 Right lower quadrant pain (principal)
CPT/HCPCS: 36415; 74177; 76830; 80053; 81025; 83690; 85025; J2405; Q9967